=== PATIENT | male | born 1965 | race Caucasian/White ===

== ENCOUNTER 2019-11-12 01:56 | Outpatient (CLI) | payer MEDICAID, SELFPAY ==
--- NOTE | 2019-11-12 | DI.CTLCSR_ITS ---
EXAM: CT CHEST LUNG CANCER SCREEN CLINICAL HISTORY: CURRENT SMOKER F17.210 TECHNIQUE: COMPARISON: No exams were available for comparison FINDINGS: CT examination of the chest was performed utilizing noncontrast low-dose lung cancer screening protoc ol. Images obtained through the upper abdomen show unremarkable appearance of visualized portions of live r, spleen pancreas, adrenals, kidneys. No mediastinal or hilar adenopathy. Tracheobronchial tree appears intact. No thoracic aortic aneury sm. Lungs are clear. No nodule seen. No consolidation. No pleural effusion. IMPRESSION: Negative low-dose chest CT. Lung RADS Cat 1 - Negative: No nodules and definitely benign nodules
== END 2019-11-12 02:16 ==
PROVIDERS: PCP Family Medicine; Visit Provider Family Medicine
DX: Z12.2 Encounter for screening for malignant neoplasm of respiratory organs (principal); F17.210 Nicotine dependence, cigarettes, uncomplicated
CPT/HCPCS: G0297

== ENCOUNTER 2022-06-27 02:27 | Outpatient (CLI) | payer MEDICAID, SELFPAY ==
--- NOTE | 2022-06-27 08:53 | DI.CTLCSR_ITS ---
Exam(s) CT CHEST LUNG CANCER SCREEN EXAM: CT CHEST LUNG CANCER SCREEN CLINICAL HISTORY: TOBACCO USE, F17.210, SCREENING FOR LUNG CANCER. TECHNIQUE: Imaging Protocol: Low Dose Technique CONTRAST MATERIAL: None COMPARISON: CT CT CHEST LUNG CANCER SCREEN from 11/12/2019 FINDINGS: CHEST: LUNGS: There is a tiny 2 millimeter benign-appearing subpleural nodule in the lateral aspect of the r ight upper lobe. No other nodules in either lung field. No confluent infiltrates nor pleural effusi ons. No significant focal findings in the trachea and mainstem bronchi. MEDIASTINUM: There is no obvious hilar nor mediastinal adenopathy. CARDIAC: Heart size is normal. There is no pericardial effusion.Caliber of the thoracic aorta is wit hin normal limits. OTHER: OSSEOUS: No significant osseous lesions.No fractures.. IMPRESSION: 1. Solitary small 2 millimeter right upper lobe nodule, as described above. 2. No infiltrates, pleural effusions, nor intrathoracic adenopathy. 3. Lung RADS Cat 2 - Benign Appearance / Behavior: Nodules with a very low likelihood of becoming a c linically active cancer due to size or lack of growth Lung-RADS 1.0 CATEGORIES: Category 0 - Prior chest CT exam(s) being located for comparison. Category 1 - Annual screening in 12 months. No nodules or definitely benign nodules. Category 2 - Annual screening in 12 months. Benign appearance. Nodules with low likelihood of becomin g active cancer. Category 3 - 6-month follow-up. Probably benign. Short-term follow-up suggested. Nodules with low lik elihood of becoming active cancer. Category 4A - 3-month follow-up and CT/PET if >8 mm in size. Suspicious finding. Findings which requi re additional testing. Category 4B - Findings which require additional testing and tissue sampling. Category 4X - Category 3 or 4 nodules with additional features or imaging findings that increases the suspicion of malignancy. Modifier S- Potentially clinically significant findings (non lung cancer) RADIATION DOSE DELIVERED: 81.75mGy.cm Total DLP DATA REPOSITORY: All CT scans at this facility are submitted to the National Radiology Data Registry (NRDR) Dose Index Registry (DIR) with the [employer] ([employer]). RADIATION OPTIMIZATION: All CT scans at this facility use at least one of these dose optimization te chniques: automated exposure control; mA and/or kV adjustment per patient size (includes targeted exa ms where dose is matched to clinical indication); or iterative reconstruction.
== END 2022-06-27 02:47 ==
LOC: DI 02:27
PROVIDERS: PCP Family Medicine; Visit Provider Family Medicine
DX: Z12.2 Encounter for screening for malignant neoplasm of respiratory organs (principal); F17.210 Nicotine dependence, cigarettes, uncomplicated; R91.1 Solitary pulmonary nodule
CPT/HCPCS: 71271